=== PATIENT | female | born 1965 | race Caucasian/White ===

== ENCOUNTER 2017-08-12 10:36 | Emergency (ER) | payer BC ==
[~2017-08-12] VITALS: Ht 177.8 cm; Wt 71.1 kg
[2017-08-12 10:45] VITALS: BP 174/104
[2017-08-12] MEDS ORDERED: PROPARACAINE OPHTH 0.5%, 15ML ONE (11:04)
[2017-08-12] MEDS ORDERED: FLUORESCEIN OPHTHALMIC 1 MG STRIP ONE (11:04)
== END 2017-08-12 12:00 | disposition home or self-care (01) ==
LOC: ED 11:54
DX: H04.322 Acute dacryocystitis of left lacrimal passage (principal); E78.00 Pure hypercholesterolemia, unspecified
CPT/HCPCS: 99283